=== PATIENT | male | born 1930 | race Caucasian/White ===

== ENCOUNTER 2018-01-22 02:36 | Emergency (ER) | payer BC, MEDICARE ==
--- NOTE | 2018-01-22 03:24 | EDM.PDOC ---
<Mariann Dennis - Last Filed: 01/22/18 07:15> ED HPI GENERAL MEDICAL PROBLEM - General Chief Complaint: Respiratory Problem Stated Complaint: SOB Time Seen by Provider: 01/22/18 03:19 Source of Information: Reports: Patient, Family History Limitations: Reports: No Limitations - History of Present Illness INITIAL COMMENTS - FREE TEXT/NARRATIVE: pt has not been able to rest tonight because he felt sob. He has noted slight swelling in the legs. He has a history of atrial fib and chf. He has noted that he is coughing up some blood tinged sputum. He also has had some bleeding from his penis/ He has not had a recent inr. He has not had chest pain. Onset: Other ( started this pm. ) Duration: Hour(s): Location: Reports: Chest Associated Symptoms: Reports: Shortness of Breath - Related Data Allergies Allergy/AdvReac Type Severity Reaction Status Date / Time shellfish derived Allergy Shortness Verified 01/22/18 02:55 of Breath Home Meds: Home Meds Carvedilol [Coreg] 12.5 mg PO BID 01/22/18 [History] Losartan [Cozaar] 100 mg PO DAILY 01/22/18 [History] Tamsulosin [Flomax] 0.4 mg PO ASDIRECTED 01/22/18 [History] Warfarin [Coumadin] 2.5 mg PO ASDIRECTED 01/22/18 [History] Past Medical History Cardiovascular History: Reports: Afib, Heart Failure, Hypertension, SOB on Exertion Other Cardiovascular History: cardio version Musculoskeletal History: Reports: Arthritis - Infectious Disease History Infectious Disease History: Reports: Chicken Pox, Measles, Other (See Below) Other Infectious Disease History: polio - Past Surgical History HEENT Surgical History: Reports: Tonsillectomy Social & Family History - Tobacco Use Smoking Status *Q: Never Smoker - Caffeine Use Caffeine Use: Reports: Coffee - Alcohol Use Days Per Week of Alcohol Use: 7 Number of Drinks Per Day: 2 Total Drinks Per Week: 14 - Recreational Drug Use Recreational Drug Use: No ED ROS GENERAL - Review of Systems Review Of Systems: See Below Constitutional: Reports: No Symptoms HEENT: Reports: No Symptoms Respiratory: Reports: Shortness of Breath, Cough Cardiovascular: Reports: Dyspnea on Exertion, Palpitations, Other ( Pt was not able to get comfortable tonight and able to rest. ) Endocrine: Reports: No Symptoms GI/Abdominal: Reports: No Symptoms : Reports: No Symptoms Musculoskeletal: Reports: No Symptoms Skin: Reports: No Symptoms Neurological: Reports: No Symptoms Psychiatric: Reports: No Symptoms ED EXAM, GENERAL - Physical Exam Exam: See Below Free Text/Narrative:: pt arrived sob and feeling like he is not able to rest because of the sob. Exam Limited By: No Limitations General Appearance: Alert, Moderate Distress Ears: Normal TMs Nose: Normal Inspection Throat/Mouth: Normal Inspection Head: Atraumatic Neck: Normal Inspection Respiratory/Chest: Decreased Breath Sounds, Rales Cardiovascular: Irregularly Irregular, Other (known atrial fib. ) GI/Abdominal: Soft, Non-Tender (Male) Exam: Deferred Rectal (Males) Exam: Deferred Back Exam: Normal Inspection Extremities: Pedal Edema, Other ( slight edema. He has evidence of varicosities. ) Neurological: Alert, Oriented, Normal Cognition Psychiatric: Normal Affect Course - Vital Signs Last Recorded V/S: Last Vital Signs Temp 97.9 F 01/22/18 02:49 Pulse 113 H 01/22/18 07:15 Resp 17 01/22/18 07:15 BP 124/91 H 01/22/18 07:15 Pulse Ox 94 L 01/22/18 07:15 - Orders/Labs/Meds Orders: Active Orders 24 hr Category Date Time Status Ang Chest [CT] Stat Exams 01/22/18 05:35 Taken Chest 1V Frontal [CR] Stat Exams 01/22/18 03:18 Taken UA W/MICROSCOPIC [URIN] Urgent Lab 01/22/18 04:10 Ordered Saline Lock Insert [OM.PC] Routine Oth 01/22/18 03:32 Ordered Labs: Laboratory Tests 01/22/18 01/22/18 01/22/18 Range/Units 03:27 03:27 03:27 WBC 6.0 (4.5-11.0) K/uL RBC 4.41 (4.30-5.90) M/uL Hgb 13.8 (12.0-15.0) g/dL Hct 42.2 (40.0-54.0) % MCV 96 (80-98) fL MCH 31 (27-31) pg MCHC 33 (32-36) % Plt Count 261 (150-400) K/uL Neut % (Auto) 59 (36-66) % Lymph % (Auto) 19 L (24-44) % [place] % (Auto) 16 H (2-6) % Eos % (Auto) 6 H (2-4) % Baso % (Auto) 1 (0-1) % PT 18.5 H (9.5-12.0) sec INR 1.74 H (0.80-1.20) Sodium 143 (140-148) mmol/L Potassium 4.4 (3.6-5.2) mmol/L Chloride 105 (100-108) mmol/L Carbon Dioxide 29 (21-32) mmol/L Anion Gap 9.5 (5.0-14.0) mmol/L BUN 21 H (7-18) mg/dL Creatinine 1.1 (0.8-1.3) mg/dL Est Cr Clr Drug Dosing 50.39 mL/min Estimated GFR (MDRD) > 60 (>60) Glucose 99 (74-106) mg/dL Calcium 8.9 (8.5-10.1) mg/dL Total Bilirubin 0.7 (0.2-1.0) mg/dL AST 38 H (15-37) U/L ALT 38 (12-78) U/L Alkaline Phosphatase 54 (46-116) U/L Troponin I (0.000-0.056) ng/mL NT-Pro-B Natriuret Pep 1042 H (5-450) pg/mL Total Protein 6.5 (6.4-8.2) g/dL Albumin 3.3 L (3.4-5.0) g/dL Globulin 3.2 (2.3-3.5) g/dL Albumin/Globulin Ratio 1.0 L (1.2-2.2) Urine Color Urine Appearance Urine pH (4.5-8.0) Ur Specific [place] (1.008-1.030) Urine Protein (NEGATIVE) mg/dL Urine Glucose (UA) (NEGATIVE) mg/dL Urine Ketones (NEGATIVE) mg/dL Urine Occult Blood (NEGATIVE) Urine Nitrite (NEGAITVE) Urine Bilirubin (NEGATIVE) Urine Urobilinogen (NORMAL) mg/dL Ur Leukocyte Esterase (NEGATIVE) Urine RBC (0-5) Urine WBC (0-5) Ur Epithelial Cells Amorphous Sediment Urine Bacteria Urine Mucus 01/22/18 01/22/18 Range/Units 03:27 04:10 WBC (4.5-11.0) K/uL RBC (4.30-5.90) M/uL Hgb (12.0-15.0) g/dL Hct (40.0-54.0) % MCV (80-98) fL MCH (27-31) pg MCHC (32-36) % Plt Count (150-400) K/uL Neut % (Auto) (36-66) % Lymph % (Auto) (24-44) % [place] % (Auto) (2-6) % Eos % (Auto) (2-4) % Baso % (Auto) (0-1) % PT (9.5-12.0) sec INR (0.80-1.20) Sodium (140-148) mmol/L Potassium (3.6-5.2) mmol/L Chloride (100-108) mmol/L Carbon Dioxide (21-32) mmol/L Anion Gap (5.0-14.0) mmol/L BUN (7-18) mg/dL Creatinine (0.8-1.3) mg/dL Est Cr Clr Drug Dosing mL/min Estimated GFR (MDRD) (>60) Glucose (74-106) mg/dL Calcium (8.5-10.1) mg/dL Total Bilirubin (0.2-1.0) mg/dL AST (15-37) U/L ALT (12-78) U/L Alkaline Phosphatase (46-116) U/L Troponin I < 0.017 (0.000-0.056) ng/mL NT-Pro-B Natriuret Pep (5-450) pg/mL Total Protein (6.4-8.2) g/dL Albumin (3.4-5.0) g/dL Globulin (2.3-3.5) g/dL Albumin/Globulin Ratio (1.2-2.2) Urine Color Yellow Urine Appearance Clear Urine pH 6.0 (4.5-8.0) Ur Specific [place] 1.010 (1.008-1.030) Urine Protein Negative (NEGATIVE) mg/dL Urine Glucose (UA) Normal (NEGATIVE) mg/dL Urine Ketones Negative (NEGATIVE) mg/dL Urine Occult Blood Moderate (NEGATIVE) Urine Nitrite Negative (NEGAITVE) Urine Bilirubin Negative (NEGATIVE) Urine Urobilinogen Normal (NORMAL) mg/dL Ur Leukocyte Esterase Negative (NEGATIVE) Urine RBC 0-5 (0-5) Urine WBC 0-5 (0-5) Ur Epithelial Cells Rare Amorphous Sediment Not seen Urine Bacteria Few Urine Mucus Not seen Meds: Medications Discontinued Medications Generic Name Dose Route Start Last Admin Trade Name Freq PRN Reason Stop Dose Admin Furosemide 60 mg 01/22/18 03:32 01/22/18 03:41 Lasix IVPUSH 01/22/18 03:33 60 mg ONETIME ONE Administration Sodium Chloride 1,000 mls @ 100 mls/hr 01/22/18 05:45 01/22/18 07:14 Normal Saline IV 100 mls/hr ASDIRECTED RUDY Administration Sodium Chloride 94 mls @ 4 mls/sec 01/22/18 06:15 01/22/18 06:31 Normal Saline IV 4 mls/sec ASDIRECTED RUDY Administration Iopamidol 74 ml 01/22/18 06:15 01/22/18 06:31 Isovue-370 (76%) IV 100 ml . DIRECTED RUDY Administration Sodium Chloride 10 ml 01/22/18 03:32 01/22/18 03:43 Saline Flush FLUSH 10 ml ASDIRECTED PRN Administration Keep Vein Open Sodium Chloride 10 ml 01/22/18 06:03 01/22/18 06:31 Saline Flush FLUSH 01/22/18 06:04 10 ml ONETIME ONE Administration - Re-Assessments/Exams Free Text/Narrative Re-Assessment/Exam: 01/22/18 05:37 pt has put out about 1000 cc. He still is having episodes where he gets very sob. He is not having chest pain. He Has a rapid irregular -- in atrial fib with any activity. When he gets up his heart rate is in the 150s. 01/22/18 05:39 pt has a normal trop. His other labs look good. 01/22/18 07:15 cat sdan of the chest was obtained which was neg for PE. He had no sign of aneuyism. He had slight pulmonary edema. Departure - Departure Disposition: Home, Self-Care 01 Clinical Impression: Congestive heart failure (CHF) Qualifiers: Heart failure type: combined systolic and diastolic Heart failure chronicity: acute on chronic Qualified Code(s): I50.43 - Acute on chronic combined systolic (congestive) and diastolic (congestive) heart failure Atrial fibrillation Qualifiers: Atrial fibrillation type: chronic Qualified Code(s): I48.2 - Chronic atrial fibrillation - Discharge Information Instructions: Shortness of Breath, Adult, [id number] Referrals: PCP,None [Primary Care Provider] - Forms: ED Department Discharge Care Plan Goals: Continue your current medications, avoid extra salt intake, and consider a daily dose of furosemide as recommended by your refrigeration service technician over the next several days. Return anytime if symptoms are worsening despite treatment. <Jakub Stephens - Last Filed: 01/22/18 09:50> Course - Re-Assessments/Exams Free Text/Narrative Re-Assessment/Exam: 01/22/18 07:57 Patient diuresed well, and says he has when necessary Lasix at home that he has not used. His went and got his regular medications including Coreg which will help with rate control. They are going to try to go home and will return if his symptoms recur or persist. It's okay to take a dose of Lasix for the next several days if he feels nocturnal dyspnea or shortness of breath with activity. Departure - Departure Time of Disposition: 08:29 Condition: Fair
[2018-01-22] MEDS ORDERED: Furosemide 40 MG/4 ML VIAL IVPUSH ONE (03:32)
[2018-01-22] MEDS ORDERED: Sodium Chloride 0.9% 10 ML Syringe FLUSH PRN (03:32)
[2018-01-22] MEDS ORDERED: Sodium Chloride 0.9% 1,000 ML IV SCH (05:45)
[2018-01-22] MEDS ORDERED: Sodium Chloride 0.9% 10 ML Syringe FLUSH ONE (06:03)
[2018-01-22] MEDS ORDERED: Iopamidol 755 Mg/ML 100 ML Bottle IV SCH (06:15)
--- NOTE | 2018-01-22 11:46 | CR ---
CHEST: Portable CLINICAL HISTORY:SOB COMPARISON:None FINDINGS: Heart size and pulmonary vascular are normal. There are atherosclerotic changes in the aor ta.. Lung lazaro are clear. IMPRESSION: No acute cardiopulmonary process
== END 2018-01-22 08:29 | disposition home or self-care (01) ==
LOC: JP.ED 02:36
DX: I11.0 Hypertensive heart disease with heart failure (principal); I50.43 Acute on chronic combined systolic (congestive) and diastolic (congestive) heart failure; I48.2 Chronic atrial fibrillation; Z79.899 Other long term (current) drug therapy; Z91.013 Allergy to seafood
CPT/HCPCS: 36415; 71045; 71275; 80053; 81001; 83880; 84484; 85025; 85610; 96361; 96374; 99285; J1940; J7030; J7050; Q9967